=== PATIENT | male | born 1980 | race Caucasian/White ===

== ENCOUNTER 2025-03-11 01:30 | Emergency (ER) | payer SELFPAY ==
--- OUTSIDE RECORDS SUMMARY | 2025-03-11 01:32 | XMS_ITS | Clinical Summary ---
Author Organization [facility] Address [address] [place] [id number] Care Team Providers [facility] Name Role Phone Cuate Jovel MD Primary Care Provider Allergies Active Allergy Reactions Criticality Noted Date Comments Acetaminophen-Codeine Vomiting Medium 11/17/2011 Medications albuterol HFA 90 mcg/actuation inhalerIndicatio ns:Moderate persistent asthma without complication (HC) Inhale 2 Puffs by mouth 4 times daily if needed for Wheezing. 18 g 11 11/20/19 25 Active tiZANidine 4 mg tabletIndication s:Chronic midline low back pain with right-sided sciatica Take 1 Tablet (4 mg) by mouth every 8 hours if needed for Muscle Spasm. 30 Tablet 2 11/20/19 25 Active fluticasone propion-salmeter oL (Advair Diskus) 250-50 mcg/Dose diskus inhalerIndicatio ns:Moderate persistent asthma without complication (HC) Inhale 1 Puff by mouth two times daily. 60 Each 11 11/20/19 25 Active HYDROcodone-acet aminophen (5-325 mg/tablet)Indica tions:Left knee pain, unspecified chronicity,Acute pain of left knee,Internal derangement of left knee Take 1 Tablet by mouth every 4 hours if needed for Pain. Max acetaminophen dose: 4000 mg in 24 hrs. 20 Tablet 01/02/20 25 Active durable medical equipment (DME)Indications :Tear of MCL (medial collateral ligament) of knee, left, initial encounter [employer]ace XXL 1 Each 01/28/20 25 Active oxyCODONE 5 mg immediate release tabletIndication s:Chondromalacia , left knee,Tear of MCL (medial collateral ligament) of knee, left, initial encounter Take 1 Tablet (5 mg) by mouth every 4 hours if needed for Pain. 20 Tablet 02/06/20 25 Active traMADoL 50 mg tabletIndication s:Chronic midline low back pain with right-sided sciatica TAKE UP TO 3 TABLETS BY MOUTH EVERY DAY FOR PAIN 70 Tablet 02/28/20 25 Active meloxicam 15 mg tabletIndication s:Chondromalacia , left knee,Tear of MCL (medial collateral ligament) of knee, left, initial encounter,Left knee pain, unspecified chronicity,Inter nal derangement of left knee Take 1 Tablet (15 mg) by mouth once daily. 21 Tablet 03/07/20 25 Active traMADoL 50 mg tabletIndication s:Chronic midline low back pain with right-sided sciatica TAKE UP TO 3 TABLETS BY MOUTH EVERY DAY FOR PAIN 70 Tablet 01/31/20 25 025 Discontin ued(Reord er (E-cancel not sent)) Active Problems Problem Noted Date Diagnosed Date Obesity (BMI 30-39.9) 07/03/2023 Chronic midline low back pain with right-sided s ciatica 08/07/2018 Moderate persistent asthma 11/17/2011 Encounters Date Type Department Care Team Description 03/10/2025 9:25 AM CDT - 03/10/2025 11:59 PM CDT Hospital Encounter [address] [address] Godwin Rios MD Becken, Amy, PT 03/10/2025 Travel 03/07/2025 10:56 AM CDT - 03/07/2025 11:59 PM CDT Hospital Encounter [address] [address] Godwin Rios MD Vinar, Kaylin J, LEARNING AND DEVELOPMENT SPECIALIST 03/07/[address] [facility] [address] [place] [phone] Godwin Rios MD Questions 03/07/2025 Travel 03/05/2025 3:25 PM CDT - 03/05/2025 11:59 PM CDT Hospital Encounter [address] [address] Godwin Rios MD Vinar, Kaylin J, LEARNING AND DEVELOPMENT SPECIALIST 03/05/2025 Travel 02/27/2025 Refill [facility] [id number] [place] [address] Cuate Jovel MD Refill Request (Tramadol/) 02/26/2025 9:26 AM CDT - 02/26/2025 11:59 PM CDT Hospital Encounter [address] [address] Godwin Rios MD Vinar, Kaylin J, LEARNING AND DEVELOPMENT SPECIALIST 02/26/2025 Travel 02/24/2025 7:56 AM CDT - 02/24/2025 11:59 PM CDT Hospital Encounter [address] [address] Godwin Rios MD Becken, Amy, PT 02/24/2025 Travel 02/20/2025 3:25 PM CDT - 02/20/2025 11:59 PM CDT Hospital Encounter [address] [address] Godwin Rios MD Becken, Amy, PT Chondromalacia, left knee; Tear of MCL (medial collateral ligament) of knee, left, initial encounter 02/20/2025 Travel 02/13/2025 1:40 PM CDT Office Visit [facility] - [address] [facility] [address] [place] [address] Godwin Rios MD Knee Pain/problem (Left knee pain, WC) 02/13/2025 Travel 01/29/2025 Refill [facility] [id number] [place] [phone] Cuate Jovel MD Refill Request (Tramadol ) 01/27/2025 10:00 AM CDT Office Visit [facility] [place] [address] [place] [phone] Sonu Starr PA Follow Up (left knee/ MRI results) 01/27/2025 Travel 01/22/2025 12:51 PM CDT - 01/22/2025 11:59 PM CDT Hospital Encounter [facility] [address] [facility] [place] [address] Sonu Starr PA Left knee pain, unspecified chronicity; Acute pain of left knee; Internal derangement of left knee 01/22/2025 Travel 01/01/2025 10:05 AM CDT Ancillary Procedure [facility] [place] [address] [place] [phone] 01/01/2025 10:00 AM CDT Office Visit [facility] [place] [address] [place] [phone] Sonu Starr PA Consult (left knee) 01/01/2025 Travel 12/26/2024 Refill [facility] [address] [facility] [place] [place] [address] Cuate Jovel MD Refill Request (traMADoL 50 mg tablet) from Last 3 Months Immunizations Immunization Administration Dates Next Due Td (Age >=7 Years) 06/30/2022 Tdap 10/06/2009,08/28/2008 Family History Medical History Relation Name Comments Asthma Brother 1 Asthma Brother 2 Cancer-prostate Father Relation Name Status Comments Brother 1 Brother 2 Father Social History Tobacco Use Types Packs/Day Years Used Date Smoking Tobacco: Former Cigarettes 0.5 10 0 04/18/2006 - 04/18/2016 Smokeless Tobacco: Current Chew Tobacco Cessation:Ready to Q uit: No; Counseling Given: Yes Alcohol Use Standard Drinks/Week Comments No 0 (1 standard drink = 0.6 oz pur e alcohol) Sober since 02/28/2011 PHQ-2 Answer Date Recorded PHQ-2 TOTAL SCORE 0 11/19/2024 Social Connections Answer Date Recorded Do you often feel lonely or isolated from those around you? 0 11/19/2024 Financial Resource Strain Answer Date R ecorded Difficulty of Paying Living Expenses 3 11/19/2024 Difficulty of Paying Living Expenses Not on file 11/19/2024 Food Insecurity Answer Date Recorded Do you worry your food will run out before you are able to buy more? 1 11/19/2024 Transportation Needs Answer Date Record ed Does lack of transportation keep you from medica l appointments? 1 11/19/2024 Does lack of transportation keep you from work, meetings or getting things that you need? 1 11/19/2024 Housing Stability Answer Date Recorded What is your housing situation today? 1 11/19/2024 Utilities Answer Date Recorded Do you have trouble paying f or utilities (for example, heat, electricity, water, phone)? 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[employer] Gender Identity Not on file Sexual Orientation Not on file Obstetrics History Last Filed Vital Signs Vital Sign Reading Time Taken Comments Blood Pressure 126/70 11/19/2024 4:32 PM CDT Pulse 64 11/19/2024 4:32 PM CDT Temperature 36.7 C (98 F) 07/07/2019 12:53 PM TEAM LEADER [employer]GERY Respiratory Rate 18 07/07/2019 12:53 PM TEAM LEADER SURGERY Oxygen Saturation 99% 07/07/2019 12:53 PM TEAM LEADER SURGERY Inhaled Oxygen Concentration - - Weight 129.3 kg (285 lb) 11/19/2024 4:32 PM CDT Height 182.9 cm (6') 11/19/2024 4:32 PM CDT Body Mass Index 38.65 11/19/2024 4:32 PM CDT Plan of Treatment Upcoming Encounters Date Type Department Care Team (Late st Contact Info) Description 03/13/2025 2:00 PM CDT Office Visit [facility] [address] [facility] [address] [place] [address] Jamilah Méndez PA [address] [facility] [address] [place], [place] [phone] 03/18/2025 10:15 AM CDT Appointment [address] [address] Regi Morton, PT [address] [place] [address] 03/20/2025 10:15 AM CDT Appointment [address] [address] Regi Morton, PT [address] [place] [address] 03/24/2025 10:15 AM CDT Appointment [address] [address] Regi Morton, PT [address] [place] [address] 03/27/2025 9:30 AM CDT Appointment [address] [address] Regi Morton, PT [address] [place] [address] 2025 9:30 AM CDT Appointment [address] [address] Ligia Wallis, LEARNING AND DEVELOPMENT SPECIALIST [address] [place] [address] 04/03/2025 9:30 AM CDT Appointment [address] [address] Regi Morton, PT [address] [place] [address] 04/07/2025 2:45 PM CDT Appointment [address] [address] Ligia Wallis, LEARNING AND DEVELOPMENT SPECIALIST [address] [facility] [place] [address] 04/14/2025 10:15 AM CDT Appointment [address] [address] Ligia Wallis, LEARNING AND DEVELOPMENT SPECIALIST [address] [place] [address] 04/17/2025 9:30 AM CDT Appointment [address] [address] Regi Morton, PT [address] [place] [address] 04/21/2025 9:30 AM CDT Appointment [address] [address] Ligia Wallis, LEARNING AND DEVELOPMENT SPECIALIST [address] [place] [address] 04/24/2025 9:30 AM CDT Appointment [address] [address] Regi Morton, PT [address] [place] [address] Health Maintenance Due Date Last Done Comments HIV for age 15-65 1997 Hepatitis C screening for ag e 18-79 2000 Hepatitis B series for 19+ ( 1 of 3 - 19+ 3-dose series) 2001 Pneumococcal series for age 6-49 (1 of 2 - PCV) 2001 COVID-19 vaccine series ( - 2023- season) 2024 Influenza Vaccine (#1) 2025 BMI (ht and wt on same day) for age 18+ 11/19/2025 11/19/2024, 07/03/2023, 06/30/2022, Additional history exists Depression screening for age 12+ 11/19/2025 11/19/2024, 11/23/2021, 09/04/2020, Additional history exists Lipids for age 35-44 04/07/2026 04/07/2021, 03/09/20 18 Tetanus booster 06/30/2032 06/30/2022, 02/0 04/2010, 08/28/2008 Procedures Procedure Name Priority Date/Time Associated Diagnosis Comments MR KNEE LEFT WO Routine 01/22/2025 1:43 PM CDT Left knee pain, unspecified chronicity Acute pain of left knee Internal derangement of left knee XR KNEE WB 1 VIEW AP BILATERAL AND 3 VIEWS LEFT Routine 01/01/2025 10:04 AM CDT Left knee pain, unspecified chronicity LIPID PANEL W REFLEX MEASURED LDL Routine 04/07/2021 3:55 PM CDT Lipid screening from Last 3 Months or Most Recently Relevant to Health Maintenance Results * MR KNEE LEFT WO (01/22/2025 1:43 PM CDT) Anatomical Region Laterality Modality KNEE L Magnetic Resonan ce 01/23/2025 8:23 AM CDT Impressions 01/23/2025 8:23 AM CDT 1. Acute tear of the deep portion of the MCL. 2. Mild to moderate chondromalacia centrally in the medial femoral condyle. 3. Monitor high-grade chondromalacia in the patellofemoral compartment. 4. Small knee joint effusion and popliteal cyst. Dictated by Jose Qureshi MD @ 01/23/2025 8:23:55 AM (Electronically Signed) Narrative 01/23/2025 8:23 AM CDT For Patients: As a result of the Century Cures Act, medical imaging exams and procedure reports are released immediately into your electronic medical record. You may view this report before your referring provider. If you have questions, please contact your health care provider. EXAM: MRI OF THE LEFT KNEE, WITHOUT CONTRAST CLINICAL INDICATION: Knee pain following recent injury. COMPARISON PLAIN FILMS: 01/01/2025. COMPARISON CROSS-SECTIONAL IMAGING STUDIES: None available at time of interpretation. TECHNICAL: Axial, sagittal and coronal T1, PD, PD FS and T2 FS images. Knee coil. FINDINGS: MEDIAL COMPARTMENT: Medial Meniscus: Normal size and morphology without tear. Articular Cartilage: Mild chondral thinning with mild to moderate chondral fissuring and subchondral edema in the central aspect of the medial femoral (grade 2-3). - LATERAL COMPARTMENT: Lateral Meniscus: Normal size and morphology without tear. Articular Cartilage: Articular surfaces appear smooth without focal articular cartilage defect or subchondral marrow changes. - PATELLOFEMORAL COMPARTMENT: Articular Cartilage: Full-thickness chondromalacia throughout the medial patellar facet and patellar apex with mild subchondral cystic change (grade 4). Moderate to full-thickness chondromalacia with subchondral cystic change in the lateral and central trochlear groove (grade 3-4). Moderate chondral fissuring in the medial trochlear groove (grade 3). - CRUCIATE LIGAMENTS: Anterior Cruciate Ligament: Normal. Posterior Cruciate Ligament: Normal. - MEDIAL COLLATERAL LIGAMENT AND POSTEROMEDIAL CORNER COMPLEX: Medial Collateral Ligament: Acute tear of the deep portion of the MCL with thickening and edema. The superficial MCL is intact. Medial Head of the Gastrocnemius and Semimembranosus Tendons: Normal. - LATERAL COLLATERAL LIGAMENT COMPLEX AND POSTEROLATERAL CORNER COMPLEX: Fibular Collateral Ligament: Normal. Distal Biceps Femoris Tendon Complex: Normal. Iliotibial Band: Normal. Popliteus Tendon: Normal. Posterolateral Corner Capsule: Normal. - EXTENSOR MECHANISM: Distal Quadriceps Tendon: Normal. Patellar Tendon: Normal. Medial Patellar Retinaculum and Medial Patellofemoral Ligament: Normal. Lateral Patellar Retinaculum: Normal. Normal patellar alignment. No patella amalia. Normal trochlear depth. Normal lateral trochlear inclination. - JOINT SPACE: Effusion: Small knee joint effusion and popliteal cyst. Joint Bodies: None seen. - OSSEOUS STRUCTURES: No fracture, marrow edema or marrow replacement process. - PERIARTICULAR SOFT TISSUES: Periarticular Cysts or Ganglia: None. Bursae: No prepatellar, superficial infrapatellar, deep infrapatellar, pes anserinus or semimembranosus/MCL bursitis. Musculature: No muscle atrophy or muscle edema. Subcutaneous and Soft Tissues: No subcutaneous or soft tissue mass, edema or fluid collection. Neurovascular Structures: Normal. Procedure Note Jose Qureshi MD - 01/23/2025 For Patients: As a result of the 21st Century Cures Act, medical imagingexams and procedure reports are released immediately into your electronicmedical record. You may view this report before your referring provider.If you have questions, please contact your health care provider. EXAM: MRI OF THE LEFT KNEE, WITHOUT CONTRAST CLINICAL INDICATION: Knee pain following recent injury. COMPARISON PLAIN FILMS: 01/01/2025. COMPARISON CROSS-SECTIONAL IMAGING STUDIES: None available at time of interpretation. TECHNICAL: Axial, sagittal and coronal T1, PD, PD FS and T2 FS images. Knee coil. FINDINGS: MEDIAL COMPARTMENT: Medial Meniscus: Normal size and morphology without tear. Articular Cartilage: Mild chondral thinning with mild to moderate chondralfissuring and subchondral edema in the central aspect of the medialfemoral (grade 2-3). - LATERAL COMPARTMENT: Lateral Meniscus: Normal size and morphology without tear. Articular Cartilage: Articular surfaces appear smooth without focalarticular cartilage defect or subchondral marrow changes. - PATELLOFEMORAL COMPARTMENT: Articular Cartilage: Full-thickness chondromalacia throughout the medialpatellar facet and patellar apex with mild subchondral cystic change(grade 4). Moderate to full-thickness chondromalacia with subchondralcystic change in the lateral and central trochlear groove (grade 3-4).Moderate chondral fissuring in the medial trochlear groove (grade 3). - CRUCIATE LIGAMENTS: Anterior Cruciate Ligament: Normal. Posterior Cruciate Ligament: Normal. - MEDIAL COLLATERAL LIGAMENT AND POSTEROMEDIAL CORNER COMPLEX: Medial Collateral Ligament: Acute tear of the deep portion of the MCL withthickening and edema. The superficial MCL is intact. Medial Head of the Gastrocnemius and Semimembranosus Tendons: Normal. - LATERAL COLLATERAL LIGAMENT COMPLEX AND POSTEROLATERAL CORNER COMPLEX: Fibular Collateral Ligament: Normal. Distal Biceps Femoris Tendon Complex: Normal. Iliotibial Band: Normal. Popliteus Tendon: Normal. Posterolateral Corner Capsule: Normal. - EXTENSOR MECHANISM: Distal Quadriceps Tendon: Normal. Patellar Tendon: Normal. Medial Patellar Retinaculum and Medial Patellofemoral Ligament: Normal. Lateral Patellar Retinaculum: Normal. Normal patellar alignment. No patella amalia. Normal trochlear depth.Normal lateral trochlear inclination. - JOINT SPACE: Effusion: Small knee joint effusion and popliteal cyst. Joint Bodies: None seen. - OSSEOUS STRUCTURES: No fracture, marrow edema or marrow replacement process. - PERIARTICULAR SOFT TISSUES: Periarticular Cysts or Ganglia: None. Bursae: No prepatellar, superficial infrapatellar, deep infrapatellar, pesanserinus or semimembranosus/MCL bursitis. Musculature: No muscle atrophy or muscle edema. Subcutaneous and Soft Tissues: No subcutaneous or soft tissue mass, edemaor fluid collection. Neurovascular Structures: Normal. IMPRESSION: 1. Acute tear of the deep portion of the MCL. 2. Mild to moderate chondromalacia centrally in the medial femoralcondyle. 3. Monitor high-grade chondromalacia in the patellofemoral compartment. 4. Small knee joint effusion and popliteal cyst. Dictated by Jose Qureshi MD @ 01/23/2025 8:23:55 AM (Electronically Signed) us oSnu WICK MR Final Result * XR KNEE WB 1 VIEW AP BILATERAL AND 3 VIEWS LEFT (01/01/2025 10:04 AM CDT) Anatomical Region Laterality Modality KNEES, KNEE L Computed Radiogr aphy 01/01/2025 10:4 6 AM CDT Narrative 01/01/2025 10:46 AM CDT For Patients: As a result of the Cures Act, medical imaging exams and procedure reports are released immediately into your electronic medical record. You may view this report before your referring provider. If you have questions, please contact your health care provider. INDICATION: Left knee pain. TECHNIQUE: Four views left knee. FINDINGS: Moderate medial compartment narrowing. Mild tricompartmental osteoarthritis. No fracture, dislocation or lytic bone destruction. No joint effusion or other soft tissue abnormality. Dictated by Yashira Price MD @ 01/01/2025 10:46:13 AM (Electronically Signed) Procedure Note Marshall Price MD - 01/01/2025 For Patients: As a result of the Cures Act, medical imagingexams and procedure reports are released immediately into your electronicmedical record. You may view this report before your referring provider.If you have questions, please contact your health care provider. INDICATION: Left knee pain. TECHNIQUE: Four views left knee. FINDINGS: Moderate medial compartment narrowing. Mild tricompartmentalosteoarthritis. No fracture, dislocation or lytic bone destruction. Nojoint effusion or other soft tissue abnormality. Dictated by Yashira Price MD @ 01/01/2025 10:46:13 AM (Electronically Signed) [facility] Final Result * (ABNORMAL) LIPID PANEL W REFLEX MEASURED LDL (04/07/2021 3:55 PM CDT) CHOLESTEROL,TOTAL 286(H) 100 - 199 mg/dL 04/08/2021 4:44 PM CDT [facility] TRIGLYCERIDES 187(H) <150 mg/dL 04/08/2021 4:44 PM CDT [facility] HDL CHOLESTEROL 53 >40 mg/dL 4:44 PM CDT [facility] NON-HDL CHOLESTEROL 233(H) <145 mg/dl 04/08/2021 4:44 PM CDT [facility] CHOL/HDL RATIO 5.40(H) <4.50 04/08/2021 4:44 PM CDT [facility] LDL CHOLESTEROL 196(H) <=130 mg/dL 04/08/2021 4:44 PM CDT [facility] VLDL CHOLESTEROL 37 mg/dL 04/08/20 21 4:44 PM CDT [facility] PROVIDER ORDERED STATUS RANDOM 04/08/2021 4:44 PM CDT [facility] Blood BLOOD SPECIMEN / Unknown Venipuncture / Unknown 04/07/2021 3:55 PM CDT 04/07/2021 4:01 PM CDT Cuate Jovel MD CHEMISTRY Final R esult [facility] [address] [place] [address], from Last 3 Months or Most Recently Relevant to Health Maintenance Insurance [facility] [employer] Care Teams Hospital Cna Relationship Specialty [place] [id number] [address] [id number] PCP - General Family Practice 08/07/18
[2025-03-11 01:33] VITALS: BP 140/84; PULSE 61; RESP 22; TEMP 36.1; O2SAT 100; BMI 37.6
[2025-03-11 01:47] VITALS: PULSE 56; O2SAT 100
--- NOTE | 2025-03-11 01:47 | ED_ITS ---
HPI - General Adult General Chief complaint: Shortness of Breath/Dyspnea Stated complaint: difficulty breathing Time Seen by Provider: 03/11/25 01:46 History of Present Illness HPI narrative: torn KAREN 3 months ago. Takes tramadol for back pain. Kratom, a leaf at tobacco shops for pain relief. Side effect is a lung problem. Pt reports issues breathing problems, been getting worse since 4pm today . Has taken his albuterol inhaler but it is not working. Pt also has nebulizer at home also used, not working. Pt sats 100% during triage. Pt also states had a panic attach while coming here, felt like he almost passed out. Pt reports no chest pain but states he has chest tightness - 3 hours ago . 44-year-old man presenting to the emergency department with concern of shortness of breath. Underlying history of asthma. Has been using inhaler as well as albuterol nebulizer. Admits an addictive personality. Has been taking kratom regularly or last 3 months as it has been helpful with pain. Significant other has pointed out that this seems to be contributing to difficulty breathing as often after he has taken some he has more difficulty breathing. His symptoms that have been recurring or just that he feels like he can not catch that last 3rd of this breath he says. Yesterday was just so tired he seems like went to sleep but tonight was worse. No fever. Not with significant cough. No cardiac history. Did however use lot of substances in his younger years including significant amount of cocaine. Nebulizer of albuterol used about an hour prior to arrival here in the emergency department. Was not helping. Had what he suspects might be a panic attack on the way and nearly passed out. Related Data Home Medications ?Medication ?Instructions ?Recorded ?Confirmed albuterol sulfate 90 mcg/actuation 2 puff inhalation Q ID PRN wheezing 03/11/25 03/11/25 aerosol inhaler meloxicam 15 mg tablet 15 mg PO DAILY 03/11/2502/25 tizanidine 4 mg tablet 4 mg PO 3XD 03/11/25 5 tramadol 50 mg tablet mg PO 03/11/25 Previous Rx's ?Medication ?Instructions ?Recorded ipratropium 0.5 mg-albuterol 3 mg 3 ml inhalation Q6H PRN #90 mL 03/11/25 (2.5 mg base)/3 mL nebulization soln prednisone 20 mg tablet 40 mg (2 x 20 mg) PO DAILY 5 days 03/11/25 #10 tabs Allergies Allergy/AdvReac Type Severity Reaction Status Date / Time codeine Allergy Intermediate Vomiting Verified 03/11/25 01:39 Review of Systems Status of ROS: Reports: 6 or more systems reviewed and unremarkable except as noted in History and below [facility] Social History Non-prescribed substance use: denies use Exam Narrative: Exam Narrative: Pleasant. NAD. Vitals are reassuring and satting 100%. Mildly labored breathing. Extremities are well perfused without edema. Lungs actually sound clear. Heart in slower rate but regular rhythm without murmur rub or gallop. No supraclavicular crepitus or swelling. Const: Vital Signs, click to edit/add: Vital Signs - 24 hr 03/11/25 01:33 03/11/25 01:47 03/11/25 02:00 Temperature 97.0 F L Pulse Rate 56 L 53 L Pulse Rate [Left P ulse Oximeter] 61 Respiratory Rate 22 Blood Pressure [Ri ght Upper Arm] 140/84 H Pulse Oximetry 100 100 100 Oxygen Delivery Me thod Room Air 03/11/25 02:30 03/11/25 04:00 Temperature Pulse Rate 55 L 60 Pulse Rate [Left P ulse Oximeter] Respiratory Rate 16 Blood Pressure [Ri ght Upper Arm] Pulse Oximetry 100 100 Oxygen Delivery Me thod Room Air Documenting provider has reviewed patient's vital signs: yes Course Vital Signs Vital signs: Initial Vital Signs Temperature 97.0 F L 03/11/25 01:33 Temperature Source Temporal Artery Scan 03/11/25 01:33 Pulse Rate 61 03/11/25 01:33 Pulse Rhythm Regular 03/11/25 01:33 Respiratory Rate 22 03/11/25 01:33 Blood Pressure 140/84 H 03/11/25 01:33 Blood Pressure Mean 102 03/11/25 01:33 Blood Pressure Position Sitting 03/11/25 01:33 Pulse Oximetry 100 03/11/25 01:33 Oxygen Delivery Method Room Air 03/11/25 01:33 Vital Signs Temperature 97.0 F L 03/11/25 01:33 Pulse Rate 61 03/11/25 01:33 Respiratory Rate 22 03/11/25 01:33 Blood Pressure 140/84 H 03/11/25 01:33 Pulse Oximetry 100 03/11/25 01:33 Oxygen Delivery Method Room Air 03/11/25 01:33 Temperature 97.0 F L 03/11/25 01:33 Pulse Rate 60 03/11/25 04:00 Respiratory Rate 16 03/11/25 04:00 Blood Pressure 140/84 H 03/11/25 01:33 Pulse Oximetry 100 03/11/25 04:00 Oxygen Delivery Method Room Air 03/11/25 04:00 Medications Administered Medications: Discontinued Medications Generic Name Dose Route Start Last Admin Trade Name Freq PRN Reason Stop Dose Admin Albuterol/Ipratropium 1 neb 03/11/25 01:54 03/11/25 01:57 Iprat-Albut 0.5-2.5 Mg/3 Ml Neb IH 03/11/25 01:55 1 neb ONCE ONE Administration Medical Decision Making MDM Narrative Medical decision making narrative: I am not convinced that nebulization would be helpful here but can certainly try a DuoNeb at this point. Mr. Pabon had indicated that he does not have ipratropium bromide but seems familiar. May be experiencing some bronchospasm or bronchitis although not audible on exam. Does appear to have reliable worsening with kratom. Could be some pneumonitis or maybe pneumothorax. Initially would do a chest x-ray and potentially then also screen for cardiac injury. Monitor for arrhythmia. Pulmonary embolus? Exacerbation of symptoms by anxiety. DuoNeb given. Not initially helpful but after period of observation without event during time in the emergency department, does appear overall improved. Chest x-ray independently reviewed by me shows rather rounded cardiac silhouette but I do not see any significant cardiomegaly nor pneumothorax. No infiltrate. No pulmonary edema evident. Labs are reassuring. Vital stable. Improved. Agreed. Kratom is probably not a good idea. Might be contributing to pneumonitis or other flares of anxiety. As discussed am sending in a prescription of DuoNebs. I am also making available a prescription of prednisone if you feel that might be helpful. Lab Data Lab results reviewed: Yes I reviewed the patient's lab results Labs: Lab Results 03/11/25 Range/Units 02:50 WBC 7.63 (4.50-11.00) K/uL RBC 4.23 L (4.30-5.90) m/uL Hgb 11.8 L (13.5-17.5) gm/dL Hct 35.3 L (37.0-53.0) % MCV 84 (80-100) fL MCH 28 (26-34) pg MCHC 33 (32-36) gm/dL RDW Coeff of Sonal 13.5 (11.5-15.5) % Plt Count 360 (140-440) K/uL Neut % (Auto) 55.0 (42.0-72.0) % Lymph % (Auto) 31.6 (20-44) % Emanuel % (Auto) 8.8 (0.0-11.0) % Eos % (Auto) 3.3 (0.0-7.0) % Baso % (Auto) 0.9 (0.0-3.0) % Neut # (Auto) 4.20 (1.7-7.0) K/uL Lymph # (Auto) 2.41 (0.90-2.90) K/uL Emanuel # (Auto) 0.70 (0.00-0.90) K/UL Eos # (Auto) 0.25 (0.00-0.50) K/uL Baso # (Auto) 0.07 (0.00-0.30) K/uL Abs Immat Gran (auto) 0.03 (0.00-0.30) K/uL Imm/Tot Granulo (auto) 0.4 % D-Dimer Quant (PE/DVT) 0.49 (0.00-0.50) ug/ml Sodium 140 (135-149) mmol/L Potassium 3.4 L (3.6-5.1) mmol/L Chloride 106 (96-114) mmol/L Carbon Dioxide 24 (20-32) mmol/L Anion Gap 10 (7-15) mEq/L BUN 13 (5-24) mg/dL Creatinine 0.9 (0.5-1.5) mg/dL Estimated Creat Clear 117.36 Estimated GFR 109 ml/min Glucose 113 (60-115) mg/dL Calcium 9.9 (8.4-10.6) mg/dL Troponin I < 0.01 (0.01-0.04) ng/mL C-Reactive Protein < 0.5 L (0.5-1.0) mg/dL NT-Pro-B Natriuret Pep 158 (See Note) pg/mL ECG Data Attestation: I personally reviewed and interpreted this ECG as follows: (Sinus bradycardia at 53. No apparent ischemic changes) Discharge Plan Discharge Clinical Impression: Shortness of breath, Chest pressure Patient Disposition: Home w/ Parent or Adult Condition: Improved Additional Instructions: Agreed. Kratom is probably not a good idea. Might be contributing to pneumonitis or other flares of anxiety. As discussed am sending in a prescription of DuoNebs. I am also making available a prescription of prednisone if you feel that might be helpful. Prescriptions: New ipratropium-albuterol 0.5 mg-3 mg(2.5 mg base)/3 mL solution for nebulization 3 ml inhalation Q6H PRNQty: 90 0RF prednisone 20 mg tablet 40 mg PO DAILY 5 Days Qty: 10 0RF No Action tizanidine 4 mg tablet 4 mg PO 3XD meloxicam 15 mg tablet 15 mg PO DAILY tramadol 50 mg tablet PO albuterol sulfate 90 mcg/actuation HFA aerosol inhaler 2 puff INHALATION QID PRN (Reason: wheezing) Follow Up/Referrals: Cuate Jovel MD [Primary Care Provider, Family Practice] Stand Alone Forms: [employer] Info Instructions
[2025-03-11] MEDS: IPRAT-ALBUT 0.5-2.5 MG/3 ML NEB 1 NEB IH (01:57)
[2025-03-11 02:00] VITALS: PULSE 53; O2SAT 100
--- NOTE | 2025-03-11 02:10 | CRLHL7_ITS ---
For Patients: As a result of the Century Cures Act, medical imaging exams and procedure reports are released immediately into your electronic medical record. You may view this report before your referring provider. If you have questions, please contact your health care provider. INDICATION: Chest pain, shortness of breath. TECHNIQUE: Chest 2 views. COMPARISON: None. FINDINGS: Cardiovascular and mediastinum: Heart size and vasculature are normal in caliber and appearance. Lungs and pleural spaces: Lungs are clear. No sign of infiltrate or mass. No sign of pleural effusion. No pneumothorax. Bones and soft tissues: No significant findings. IMPRESSION: No acute cardiopulmonary abnormality. Dictated by Cody Markham MD @ 03/11/2025 2:40:39 AM (Electronically Signed)
[2025-03-11 02:30] VITALS: PULSE 55; O2SAT 100
[2025-03-11 03:03] LABS: Hematocrit 35.3 % (37.0-53.0); Hemoglobin* 11.8 gm/dL (13.5-17.5); Immature Granulocytes Abs Auto 0.03 K/uL (0.00-0.30); Immature Granulocytes Pct Auto 0.4 %; Lymphocytes Absolute Auto 2.41 K/uL (0.90-2.90); Mean Corpuscular HGB Conc 33 gm/dL (32-36); Mean Corpuscular Hemoglobin 28 pg (26-34); Mean Corpuscular Volume 84 fL (80-100); RDW Coefficient of Variation % 13.5 % (11.5-15.5); Red Blood Count 4.23 m/uL (4.30-5.90); White Blood Count* 7.63 K/uL (4.50-11.00)
[2025-03-11 03:11] LABS: Slide Review Reflex No
[2025-03-11 03:16] LABS: Chloride* 106 mmol/L (96-114); Potassium* 3.4 mmol/L (3.6-5.1); Sodium* 140 mmol/L (135-149)
[2025-03-11 03:19] LABS: Blood Urea Nitrogen* 13 mg/dL (5-24); Creatinine* 0.9 mg/dL (0.5-1.5); Est. Creatinine Clearance* 117.36; Estimated Glomerular Filt Rate 109 ml/min
[2025-03-11 03:20] LABS: Anion Gap 10 mEq/L (7-15); Calcium* 9.9 mg/dL (8.4-10.6); Carbon Dioxide* 24 mmol/L (20-32); Glucose* 113 mg/dL (60-115)
[2025-03-11 03:28] LABS: D Dimer Quantitative* 0.49 ug/ml (0.00-0.50)
[2025-03-11 03:33] LABS: NT Pro B Type NatriureticPept* 158 pg/mL (See Note)
[2025-03-11 04:00] VITALS: PULSE 60; RESP 16; O2SAT 100
== END 2025-03-11 04:32 | disposition home or self-care (01) ==
PROVIDERS: Emergency Provider Family Medicine; PCP Family Medicine
DX: R06.02 Shortness of breath (principal); R07.89 Other chest pain
CPT/HCPCS: 36415; 71046; 80048; 83880; 84484; 85025; 85379; 86140; 93005; 99284